=== PATIENT | female | born 1995 | race Asian ===

== ENCOUNTER 2021-05-29 01:27 | Emergency (ER) | payer OTHER ==
[~2021-05-29] VITALS: Ht 170 cm; Wt 50.0 kg
[2021-05-29 01:40] VITALS: TEMP 100.2
[2021-05-29] MEDS ORDERED: MOTRIN 800800 MG/TAB PO (02:40)
[2021-05-29 02:46] VITALS: BP 110/68; PULSE 89
== END 2021-05-29 03:00 | disposition home or self-care (01) ==
LOC: COL.ER 01:27
DX: R50.9 Fever, unspecified (principal); R00.0 Tachycardia, unspecified; Z20.822 Contact with and (suspected) exposure to COVID-19